=== PATIENT | male | born 1995 | race Caucasian/White ===

== ENCOUNTER 2020-08-23 19:47 | Emergency (ER) | payer SELFPAY ==
[2020-08-23] MEDS ORDERED: ONDANSETRON ODT 8 MG TAB SL ONE (20:08)
[2020-08-23] MEDS ORDERED: SODIUM CHLORIDE 0.9% 1000ML 1,000 ML IVS ONE ×2 (20:10→20:52)
[2020-08-23] MEDS ORDERED: ONDANSETRON ODT 8 MG TAB ONE (20:10)
[2020-08-23] MEDS ORDERED: ALUMINUM & MAGNESIUM HYDROXIDE 30 ML UD PO ONE (20:11)
[2020-08-23] MEDS ORDERED: POTASSIUM CHLORIDE ELIXIR 20 MEQ/15 ML UD PO ONE (20:52)
[2020-08-23 21:03] VITALS: O2SAT 97
--- NOTE | 2020-08-23 22:23 | ED.PDOC ---
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 The patient did not throw up any blood or bile. No diarrhea. No fever. No known coronavirus exposure. No cough or shortness of breath. No fever. No point abdominal tenderness. No history of any kidney disease. No urinary symptoms. He did have a near syncopal episode while vomiting. Timing/Duration: other - 8 hours Severity: moderate Improving Factors: nothing Worsening Factors: nothing Associated Symptoms: loss of appetite, malaise, nausea/vomiting Allergies/Adverse Reactions: Allergies Penicillins Allergy (Verified 08/23/20 20:08) Home Medications: Ambulatory Orders Famotidine 20 mg PO DAILY #30 tab 08/23/20 Ondansetron Odt [Zofran ODT] 4 mg PO Q8HR PRN #5 tab 08/23/20 Review of Systems - Review of Systems Constitutional: States: malaise EENTM: States: no symptoms reported Respiratory: States: no symptoms reported Cardiology: States: no symptoms reported Gastrointestinal/Abdominal: States: nausea, vomiting Genitourinary: States: no symptoms reported Musculoskeletal: States: no symptoms reported Skin: States: no symptoms reported Neurological: States: no symptoms reported, other - Dizziness Endocrine: States: no symptoms reported Hematologic/Lymphatic: States: no symptoms reported All other Systems: No Change from Baseline Past Medical History (General) - Patient Medical History Hx Asthma: No Hx Cardiac Disorders: No Hx Diabetes: No Surgical History: other - Vaccination History Hx Tetanus, Diphtheria Vaccination: No Hx Influenza Vaccination: No Hx Pneumococcal Vaccination: No - Social History Hx Tobacco Use: No Hx Alcohol Use: No Family Medical History - Family History Father Family History: Unknown Physical Exam - Physical Exam General Appearance: Alert, No apparent distress Eye Exam: bilateral normal Ears, Nose, Throat: hearing grossly normal, normal pharynx Neck: full range of motion, supple Respiratory: lungs clear, normal breath sounds, no respiratory distress, no acce ssory muscle use Cardiovascular/Chest: normal peripheral pulses, regular rate, rhythm, no edema Peripheral Pulses: radial,right: 2+, radial,left: 2+, dorsalis pedis,right: 2+, dorsalis pedis,left: 2+ Gastrointestinal/Abdominal: non tender, soft Rectal Exam: deferred Back Exam: no CVA tenderness, no vertebral tenderness Extremity: normal range of motion, non-tender, normal inspection, no pedal edema, normal capillary refill 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, alert, normal mood/affect, oriented x 3 Skin Exam: normal color Comments: Vital Signs - 24 hr 08/23/20 08/23/20 08/23/20 19:55 20:31 20:32 Temperature 99.6 F Pulse Rate [ 96 H 80 108 H left] Respiratory 18 18 18 Rate Blood Pressure 124/76 121/69 106/80 [left] O2 Sat by Pulse 96 99 95 Oximetry 08/23/20 08/23/20 21:02 22:00 Temperature Pulse Rate [ 85 75 left] Respiratory 16 16 Rate Blood Pressure 137/79 122/75 [left] O2 Sat by Pulse 97 97 Oximetry Progress - Progress Progress: 08/23/20 22:23 The patient is a 25-year-old male that presented secondary to nausea and vomiting this morning with associated near syncope. The patient was tilt positive and does appear significantly dehydrated by laboratory. He does have mild acute renal failure with a creatinine of 2. He has received a couple of liters of IV fluids here. The patient will be for Zofran for as needed use for the next couple of days. I doubt the patient has a coronavirus however a test being done and he does need to isolate for the next couple of days until the result is back. He needs to maintain a bland diet. He needs to have a repeat blood draw done in about 2 weeks. ER warnings are given. aaron johnson [id number] - Results/Orders Results/Orders: Coronavirus test is a send out. Laboratory Tests 08/23/20 08/23/20 08/23/20 20:20 20:20 21:33 WBC 12.0 H RBC 4.82 Hgb 14.3 Hct 41.3 L MCV 85.7 MCH 29.6 MCHC 34.6 RDW 12.9 Plt Count 216 MPV 7.9 Absolute Neuts (auto) 10.20 H Absolute Lymphs (auto) 0.70 L Absolute Monos (auto) 1.00 H Absolute Eos (auto) 0.00 Absolute Basos (auto) 0.00 Neutrophils % 85.4 H Lymphocytes % 6.2 L Monocytes % 8.2 Eosinophils % 0.0 L Basophils % 0.2 Sodium 137 Potassium 3.3 L Chloride 102 Carbon Dioxide 23 Anion Gap 15.3 BUN 18 Creatinine 2.01 H BUN/Creatinine Ratio 9.0 L Random Glucose 145 H Serum Osmolality 278.3 Calcium 9.2 Total Bilirubin 2.3 H* AST 34 ALT 25 Alkaline Phosphatase 64 Creatine Kinase 314 H* CK-MB (CK-2) 2.9 CK-MB (CK-2) % Not Reportable Troponin I 0.02 B-Natriuretic Peptide 22.4 Serum Total Protein 7.0 Albumin 4.5 Globulin 2.5 Albumin/Globulin Ratio 1.8 Amylase 65 Lipase 29 Urine Color Yellow Urine Appearance Clear Urine pH 5.5 Ur Specific [place] 1.010 Urine Protein 100 H Urine Glucose (UA) Negative Urine Ketones Negative Urine Blood Trace-intact H Urine Nitrite Negative Urine Bilirubin Negative Urine Urobilinogen 0.2 Ur Leukocyte Esterase Negative Urine RBC 1-3 Urine WBC 0-1 Ur Epithelial Cells 0 Urine Bacteria 0 EKG shows normal sinus rhythm with mild left atrial dilation. Early right bundle branch block. Right axis deviation. Normal sinus rhythm [address] segment or T wave changes indicative of acute ischemia. Normal QT interval. Departure - Departure Clinical Impression: Dehydration, Syncope, near Acute renal failure Qualifiers: Acute renal failure type: unspecified Qualified Code(s): N17.9 - Acute kidney failure, unspecified Nausea and vomiting Qualifiers: Vomiting type: unspecified Vomiting Intractability: non-intractable Qualified Code(s): R11.2 - Nausea with vomiting, unspecified Disposition: Discharge to Home or Self Care Condition: Fair Departure Forms: ED Discharge - Pt. Copy, Patient Portal Self Enrollment Instructions: Dehydration, Adult (DC) Diet: bland diet Activity: increase activity as tolerated Prescriptions: Ondansetron Odt [Zofran ODT] 4 mg PO Q8HR PRN #5 tab PRN Reason: Nausea--Moderate Famotidine 20 mg PO DAILY #30 tab Home Medications: Ambulatory Orders Famotidine 20 mg PO DAILY #30 tab 08/23/20 Ondansetron Odt [Zofran ODT] 4 mg PO Q8HR PRN #5 tab 08/23/20 Additional Instructions: The patient is a 25-year-old male that presented secondary to nausea and vomiting this morning with associated near syncope. The patient was tilt positive and does appear significantly dehydrated by laboratory. He does have mild acute renal failure with a creatinine of 2. He has received a couple of liters of IV fluids here. The patient will be for Zofran for as needed use for the next couple of days. I doubt the patient has a coronavirus however a test being done and he does need to isolate for the next couple of days until the result is back. He needs to maintain a bland diet. He needs to have a repeat blood draw done in about 2 weeks. ER warnings are given.
[2020-08-23 22:50] VITALS: BP 116/69; TEMP 98.8
== END 2020-08-23 22:49 | disposition home or self-care (01) ==
LOC: ER 19:47
DX: R11.2 Nausea with vomiting, unspecified (principal); E86.0 Dehydration; R55 Syncope and collapse; N17.9 Acute kidney failure, unspecified; I45.10 Unspecified right bundle-branch block; Z88.0 Allergy status to penicillin; Z20.828 Contact with and (suspected) exposure to other viral communicable diseases
CPT/HCPCS: 36415; 80053; 81001; 82150; 82550; 82553; 83690; 83880; 84484; 85025; 87635; 93005; 96360; 99284; J7030